=== PATIENT | male | born 1945 | race Caucasian/White ===

== ENCOUNTER 2020-05-25 08:47 | Day surgery (SDC) | payer MEDICARE, BC ==
[~2020-05-25] VITALS: Ht 182.9 cm; Wt 75.7 kg
[~2020-05-25 08:47] MED LIST: ALTACE 2.5MG T2.5 MG PO; ASPIRIN 32325 MG/TAB PO; AZULFIDINE500 MG/TAB PO; EFFIENT10 MG PO; EFFIENT5 MG PO; LEVOXYL0.025 MG PO; NITRO-DUR0.2 MG/PAT TD; NITROSTAT0.4 MG/TAB SL; OMEGA-3 1000 MG1 CAP PO; OSTEO-BI-FLEX 21 TAB PO; PLAVIX 75MG TAB75 MG PO; PRILOSEC 20MG20 MG PO; TOPROL XL 25MG25 MG PO; TOPROL XL 50MG50 MG PO; TYLENOL 325MG325 MG PO; ZOCOR 40MG40 MG PO
[2020-05-25 09:07] VITALS: BP 134/77; PULSE 90; TEMP 99
[2020-05-25] MEDS ORDERED: OSTEO-BI-FLEX 21 TAB PO (09:12)
[2020-05-25] MEDS ORDERED: LEVOXYL0.125 MG PO (09:14)
[2020-05-25] MEDS ORDERED: NORVASC 5MG5 MG/TAB PO (09:14)
[2020-05-25 10:15] VITALS: BP 107/60; PULSE 80
--- NOTE | 2020-05-25 10:15 | NUR ---
Patient brought back to [facility] [address] via cart. Ambulated to chair with one assist. Placed on monitors, vital signs stable. Denies pain or nausea. Ivania at bedside for report. IV infusing without difficulty. Patient requests muffin, toast, and juice. Warm blanket provided, call samano within reach. Will continue to monitor.
[2020-05-25 10:30] VITALS: BP 122/77; PULSE 77
--- NOTE | 2020-05-25 10:30 | NUR ---
Patient tolerating food and drink without difficulty. Vital signs stable. Denies nausea. Will monitor.
[2020-05-25 10:45] VITALS: BP 120/71; PULSE 78
--- NOTE | 2020-05-25 10:45 | NUR ---
Patient states he is feeling good and ready to go home. Son informed to pick patient up at entrance. IV removed, intact. Patient to get dressed at this time. Will monitor.
--- NOTE | 2020-05-25 11:05 | NUR ---
Discharge instructions reviewed with patient. All questions answered.
--- NOTE | 2020-05-25 11:10 | NUR ---
Patient brought down to lobby via wheel chair by Emily CORMIER. Son to drive patient home. Met at front entrance.
== END 2020-05-25 11:10 | disposition home or self-care (01) ==
LOC: SDCO 08:47
DX: K51.911 Ulcerative colitis, unspecified with rectal bleeding (principal); K92.1 Melena; E78.00 Pure hypercholesterolemia, unspecified; I25.2 Old myocardial infarction; I25.10 Atherosclerotic heart disease of native coronary artery without angina pectoris; I73.9 Peripheral vascular disease, unspecified; I10 Essential (primary) hypertension; G47.33 Obstructive sleep apnea (adult) (pediatric); J44.9 Chronic obstructive pulmonary disease, unspecified; Z95.5 Presence of coronary angioplasty implant and graft; Z88.8 Allergy status to other drugs, medicaments and biological substances; Z79.82 Long term (current) use of aspirin; Z87.891 Personal history of nicotine dependence; Z95.1 Presence of aortocoronary bypass graft; Z85.828 Personal history of other malignant neoplasm of skin; Z20.828 Contact with and (suspected) exposure to other viral communicable diseases
CPT/HCPCS: J2704; J7030